=== PATIENT | female | born 1930 | race Caucasian/White ===

== ENCOUNTER 2016-10-18 15:25 | Emergency (ER) | payer MEDICARE, OTHER ==
[2016-10-18 15:30] VITALS: BP 133/97; PULSE 93; RESP 14; TEMP 98.2; O2SAT 93
== END 2016-10-18 16:50 | disposition left against medical advice (07) ==
LOC: NED 15:25
DX: T78.40XA Allergy, unspecified, initial encounter (principal)
CPT/HCPCS: 99281